=== PATIENT | female | born 1965 | race Caucasian/White ===

== ENCOUNTER 2016-11-13 06:57 | Inpatient (IN) | payer MEDICARE ==
[~2016-11-13] VITALS: Ht 165.1 cm; Wt 57.2 kg
[2016-11-13 11:05] VITALS: BP 108/73
--- NOTE | 2016-11-13 11:05 | NUR ---
[id number]: PT IS 51 YEARS OLD FEMALE ADMITTED ON 5150 FOR DTS. ACCORDING TO THE HOLD, PT REPORTS THAT SHE HAS WORSENING DEPRESSION, FEELS HOPELESS AND DOES NT WANT TO LIVE LIKE THIS ANYMORE. PT HAS SUICIDAL THOUGHTS AND UNABLE TO CONTRACT FOR SAFETY AT THIS TIME. UPON FACE-TO FACE ASSESSMENT, PT IS OBSERVED TO BE ANXIOUS, RESTLESS, PARANOID ABOUT NEW ENVIRONMENT. PT IS WEARING NIGHTGOWN, UNKEMPT, DISHEVELED. NO BEHAVIORAL OUTBURST NOTED AT THIS TIME. NO COMPLAIN OF PAIN OR DISCOMFORT. ESCORTED PT AROUND THE UNIT. PROVIDE PT WITH PT'S RIGHT HANDBOOK. DISCUSS MEAL TIMES AND FRESH AIR BREAKS. MRSA DONE. SKIN ASSESSMENT DONE. NOTIFIED DR. ELIAS AND DR. BREWSTER. BELONGINGS STORED AND DOCUMENTED. ALL PAPERWORK AND COMPUTER DOCUMENTATION DONE. WILL ENDORSE TO INCOMING NURSE TO DOUBLE CHECK ALL PAPERWORK AND COMPUTER DOCUMENTATION. Addendum: 11/13/16 at 1823 by AZAEL ORLANDO RN NOTIFIED DR. RUVALCABA ABOUT NEW ADMISSION
[2016-11-13] MEDS ORDERED: MAGNESIUM HYDROXIDE 30 ML UDC PO PRN (11:30)
[2016-11-13] MEDS ORDERED: ACETAMINOPHEN 325 MG TABLET PO PRN (11:30)
[2016-11-13] MEDS ORDERED: clonazePAM 0.5 MG TABLET PO PRN (11:30)
[2016-11-13] MEDS ORDERED: MAG HYDROX/AL HYDROX/SIMETH 30 ML UDC PO PRN (11:30)
[2016-11-13] MEDS ORDERED: PARO30TA3 PO (12:18)
[2016-11-13] MEDS ORDERED: CLON1TAB4 PO (12:18)
[2016-11-13] MEDS ORDERED: QUET100T PO (12:18)
[2016-11-13] MEDS ORDERED: TOPI200T PO (12:18)
[2016-11-13] MEDS: PAROXETINE HCL 20 MG TABLET PO SCH ×2 (13:37→16:38)
[2016-11-13] MEDS: QUETIAPINE FUMARATE 25 MG TABLET PO SCH ×3 (13:37→21:10)
[2016-11-13 16:00] VITALS: BP 103/72
[2016-11-13 20:00] VITALS: BP 92/64
[2016-11-13] MEDS: TOPIRAMATE 25 MG TABLET PO SCH (21:11)
[2016-11-13] MEDS: clonazePAM 1 MG TABLET PO PRN (22:09)
--- NOTE | 2016-11-13 22:09 | NUR ---
GPS RN: PATIENT HAS JUST BEEN ADMITTED TO THE UNIT 11/12. SKIN IS CLEAR. PATIENT REQUESTED FOR HER KLONOPIN MEDICATION, 1MG GIVEN ORDERED. WILL MONITOR PATIENT AND EFFECTIVENESS OF MEDICATIONS.
[2016-11-14 07:04] LABS: ALBUMIN 3.6 g/dL (3.4-5.0); BILIRUBIN,TOTAL 0.6 mg/dL (0.2-1.0); CALCIUM, SERUM 8.8 mg/dL (8.5-10.1); CREATININE 0.9 mg/dL (0.6-1.3); POTASSIUM 3.8 mmol/L (3.5-5.1); TOTAL PROTEIN, SERUM 5.9 g/dL (6.4-8.2)
[2016-11-14 08:00] VITALS: BP 100/67
[2016-11-14] MEDS: PAROXETINE HCL 20 MG TABLET PO SCH ×2 (08:21→16:19)
[2016-11-14] MEDS: QUETIAPINE FUMARATE 25 MG TABLET PO SCH ×3 (08:21→21:36)
[2016-11-14] MEDS: clonazePAM 1 MG TABLET PO PRN ×2 (11:47→23:33)
[2016-11-14 16:09] VITALS: BP 100/60
[2016-11-14 19:45] VITALS: BP 95/73
[2016-11-14] MEDS: TOPIRAMATE 25 MG TABLET PO SCH (21:36)
[2016-11-15 08:00] VITALS: BP 97/62
[2016-11-15] MEDS: PAROXETINE HCL 20 MG TABLET PO SCH ×2 (08:06→16:22)
[2016-11-15] MEDS: QUETIAPINE FUMARATE 25 MG TABLET PO SCH ×3 (08:06→21:17)
--- NOTE | 2016-11-15 09:40 | NUR ---
Initial Discharge Plan: Patient lives at home with her father [address] [place] [address]. ([phone]). Patient wants to return home upon discharge. Sw attempted to contact patient's father Andres Menendez ([phone]/ ). However he was unavailable. Morgan left a detailed message with her direct contact information. Morgan will attempt again later. Sw will help form a safe and proper discharge.
[2016-11-15 11:13] LABS: BASOPHILS % (AUTO) 0.4 % (0.0-2.0); EOSINOPHILS # (AUTO) 0.1 /CMM (0.0-0.7); EOSINOPHILS % (AUTO) 2.4 % (0.0-6.0); HEMATOCRIT 47 % (33-45); HEMOGLOBIN 15.8 g/dL (11.5-14.8); LYMPHOCYTES # (AUTO) 1.7 /CMM (0.8-4.8); LYMPHOCYTES % (AUTO) 40.5 % (20.0-44.0); MEAN CORPUSCULAR HEMOGLOBIN 33 PG (26.0-33.0); MEAN CORPUSCULAR HGB CONC 34 g/dl (31.0-36.0); MEAN CORPUSCULAR VOLUME 96 fL (82-100); MONOCYTES # (AUTO) 0.4 /CMM (0.1-1.30); MONOCYTES % (AUTO) 9.1 % (2.0-12.0); NEUTROPHILS # (AUTO) 1.9 /CMM (1.8-8.9); NEUTROPHILS % (AUTO) 47.6 % (43.0-81.0); PLATELET COUNT (AUTO) 195 /CMM (150-450); RDW COEFFICIENT OF VARIATION 13.7 (11.5-15.0); RED BLOOD CELL COUNT(AUTO) 4.84 MIL/uL (4.0-5.2); WHITE BLOOD COUNT (AUTO) 4.1 K/uL (4.3-11.0)
[2016-11-15 11:27] LABS: CALCIUM, SERUM 8.8 mg/dL (8.5-10.1); CREATININE 0.9 mg/dL (0.6-1.3); MAGNESIUM 2.1 mg/dL (1.8-2.4); PHOSPHORUS 3.7 mg/dL (2.5-4.9); POTASSIUM 3.3 mmol/L (3.5-5.1)
[2016-11-15] MEDS: clonazePAM 1 MG TABLET PO PRN ×2 (12:06→23:09)
--- NOTE | 2016-11-15 12:06 | NUR ---
[id number]: GAVE KLONOPIN 1 MG PO DUE TO SEVERE ANXIETY UPON PT REQUEST AND WILL CONTINUE TO MONITOR FOR EFFECTIVENESS OF MEDICATION
[2016-11-15 16:00] VITALS: BP 93/63
[2016-11-15 20:21] VITALS: BP 99/69
[2016-11-15] MEDS: TOPIRAMATE 25 MG TABLET PO SCH (21:17)
--- NOTE | 2016-11-15 23:09 | NUR ---
GPS/RN NOTE: PATIENT C/O ANXIETY FEELING, KLONOPIN 1 MG TAB PO GIVEN.
[2016-11-16 08:00] VITALS: BP 102/59
[2016-11-16] MEDS: QUETIAPINE FUMARATE 25 MG TABLET PO SCH ×3 (09:57→21:12)
[2016-11-16] MEDS: PAROXETINE HCL 20 MG TABLET PO SCH ×2 (09:57→16:30)
[2016-11-16] MEDS: clonazePAM 1 MG TABLET PO PRN (09:58)
--- NOTE | 2016-11-16 09:59 | NUR ---
administered klonopin 1 mg po prn for anxiety, per patient request, v/s taken 110/59, p-78, continued monitoring.
--- NOTE | 2016-11-16 10:25 | NUR ---
Sw attempted to contact patient's father Andres Menendez ([phone]/ ). However he was unavailable. Morgan left a detailed message with her direct contact information. Morgan will attempt again later
--- NOTE | 2016-11-16 12:11 | NUR ---
Morgan spoke to patient's father Andres Menendez and his friend Bri ([phone]/ ). Patient's father stated that he was concerned about patient returning home and feels that patient is not ready to be discharged. Patient's father requested to speak to the assigned psychiatrist Dr. Moore. Sw informed Dr. Moore. Patient's father agreed that if there was no other option she can return home and he will pick her up. Sw will follow-up.
--- NOTE | 2016-11-16 13:34 | NUR ---
Sw spoke to patient regarding outpatient mental health programs. Patient stated that she was previously at a program at [facility] specifically fro OCD but was not interested in going back. Sw asked patient if she would be interested in going to [facility] for their intensive outpatient program. Patient stated that if there was not a specific program for OCD than she was not interested in attending. Morgan attempted to contact Mima (fax:[phone]/phone: [phone]) form [facility] outpatient program. However, she was unavailable. Sw left her a message with detailed information and direct contact information. Sw will follow-up. Patient also mentioned that she was interested in volunteering and getting back into the routine of going to the gym and exercising. Sw encouraged patient to look for volunteer opportunities and go to the gym. Patient requested for Sw to print out a list of non-profits so that she may begin looking for volunteer opportunities. Morgan will provide patient with a list of non-profits around her area.
--- NOTE | 2016-11-16 14:29 | NUR ---
Group Notes: S: Patient stated in group- "I do not have any questions at the moment, but would like to speak to you after the group is done." O: Patient presented in group as depressed but appeared to be engaged and listening to the group discussion. A: Patient remains depressed but is beginning to show motivation in pursuing new hobbies such as volunteering and going to the gym. P: Will provide patient with a list of non-profit organizations in the community and encourage patient to continue attending group activities.
[2016-11-16 15:56] VITALS: BP 94/67
--- NOTE | 2016-11-16 16:05 | NUR ---
Sw received a call from Mima (fax:[phone]/phone: [phone]) from [facility]'s outpatient program who stated that they do not have a program specifically for OCD and stated that [facility] has a program specifically for OCD. Sw will follow-up.
[2016-11-16] MEDS ORDERED: POTASSIUM CHLORIDE 20 MEQ TAB.PRT.SR PO SCH (18:30)
[2016-11-16] MEDS ORDERED: POTASSIUM CHLORIDE 20 MEQ TAB.PRT.SR PO ONE (19:00)
--- NOTE | 2016-11-16 19:20 | NUR ---
RN NOTES RECEIVED PATIENT AWAKE IN BED. A/O X3. NO SIGNS OF DISTRESS. BREATHING EVEN AND UNLABORED. PT COOPERATIVE AND CALM. WILL CONTINUE TO MONITOR.
[2016-11-16 20:21] VITALS: BP 98/62
[2016-11-16] MEDS: TOPIRAMATE 25 MG TABLET PO SCH (21:11)
[2016-11-17] MEDS: clonazePAM 1 MG TABLET PO PRN ×3 (00:24→23:01)
--- NOTE | 2016-11-17 00:24 | NUR ---
RN NOTES ADMINISTERED KLONOPIN 1MG PO ORDERED, PER PT REQUEST FOR ANXIETY. VSS. WILL CONTINUE TO MONITOR.
--- NOTE | 2016-11-17 06:53 | NUR ---
RN NOTES PATIENT RESTING IN BED. NO CHANGES IN STATUS. ALL NEEDS ATTENDED TO. WILL ENDORSE TO AM SHIFT FOR MARY.
[2016-11-17 08:00] VITALS: BP 95/65
[2016-11-17] MEDS: PAROXETINE HCL 20 MG TABLET PO SCH ×2 (08:47→16:15)
[2016-11-17] MEDS: QUETIAPINE FUMARATE 25 MG TABLET PO SCH ×3 (08:48→22:01)
--- NOTE | 2016-11-17 13:30 | NUR ---
RN NOTES ADMINISTERED KLONOPIN 1MG PO ORDERED, PER PT REQUEST FOR ANXIETY. VSS. WILL CONTINUE TO MONITOR.
[2016-11-17 16:00] VITALS: BP 94/54
--- NOTE | 2016-11-17 19:50 | NUR ---
RN NOTES COMPLAINED OF CONSTIPATION, MILK OF MAGNESIA 30ML PO GIVEN ORDERED
[2016-11-17 20:00] VITALS: BP 121/63
[2016-11-17] MEDS: TOPIRAMATE 25 MG TABLET PO SCH (22:00)
--- NOTE | 2016-11-17 23:03 | NUR ---
RN NOTES PT IS FEELING ANXIOUS- KLONOPIN 1 MG PO GIVEN ORDERED,V/S STABLE
[2016-11-18 08:00] VITALS: BP 105/60
[2016-11-18] MEDS: clonazePAM 1 MG TABLET PO PRN ×3 (09:24→23:39)
[2016-11-18] MEDS: PAROXETINE HCL 20 MG TABLET PO SCH ×2 (09:24→16:39)
[2016-11-18] MEDS: QUETIAPINE FUMARATE 25 MG TABLET PO SCH ×2 (12:40→16:39)
--- NOTE | 2016-11-18 13:38 | NUR ---
packing floor worker contacted [facility] ([phone]) and spoke to Macrina who requested a psych evaluation and medication list to be faxed ([phone]). Macrina stated that they do not have any female beds available at the moment but might have one on Monday. Morgan will follo-up.
--- NOTE | 2016-11-18 13:41 | NUR ---
Sw spoke to patient regarding [facility] residential treatment program. However, patient stated that she does not want to go to a residential treatment program and stated that she just wants to get back into her regular routine and would like to go back home.
--- NOTE | 2016-11-18 13:41 | NUR ---
highway maintenance crew worker faxed intake packet to Ban from intake (phone:[phone]/ ) for the outpatient program at [facility] [address] [place] [id number] maintenance crew worker will follow-up.
--- NOTE | 2016-11-18 13:44 | NUR ---
Morgan spoke to patient's father Andres Menenedz and his friend Bri ([phone]) who stated that patient should go to a residential treatment program. However, Sw informed patient's father and his friend that patient is refusing a residential treatment and patient is not conserved and cannot be forced to go to a residential treatment program and would like to return home. Morgan informed them that she will follow-up with patient again.
--- NOTE | 2016-11-18 13:48 | NUR ---
Morgan spoke to patient's boyfriend Yair ([phone]) who was unhappy that patient was still in the psychiatric unit and stated that he felt that it was not helping her. Patient's boyfriend Yair requested to speak to the assigned psychiatrist Dr. Moore. Morgan will inform Dr. Moore.
--- NOTE | 2016-11-18 14:43 | NUR ---
GPS/RN PT DR MATSON OK'D TO GIVE CLONAZEPAM NOW . NEW ORDERS RECEIVED AND CARRIED OUT
[2016-11-18 16:00] VITALS: BP 100/59
[2016-11-18 20:00] VITALS: BP 100/62
[2016-11-18] MEDS: TOPIRAMATE 25 MG TABLET PO SCH (21:32)
--- NOTE | 2016-11-19 06:33 | NUR ---
RN GPS NOTES PATIENT RESTING HER BED, NO CHANGES IN STATUS. ALL NEEDS ATTENDED TO. WILL ENDORSE TO NEXT SHIFT FOR CONTINUITY CARE.
[2016-11-19 08:00] VITALS: BP 98/58
[2016-11-19] MEDS: QUETIAPINE FUMARATE 25 MG TABLET PO SCH ×3 (08:09→21:27)
[2016-11-19] MEDS: PAROXETINE HCL 20 MG TABLET PO SCH ×2 (08:10→16:07)
[2016-11-19] MEDS ORDERED: DIPHENOXYLATE HCL/ATROP SULF 1 UDTAB TABLET PO PRN (12:30)
[2016-11-19 15:52] VITALS: BP 105/63
[2016-11-19 20:00] VITALS: BP_SYST 103; BP_SYST 90; BP_DIAS 59; BP_DIAS 61
[2016-11-19] MEDS ORDERED: QUETIAPINE FUMARATE 25 MG TABLET ONE (21:23)
[2016-11-19] MEDS: TOPIRAMATE 25 MG TABLET PO SCH (21:28)
[2016-11-19] MEDS: TEMAZEPAM 7.5 MG CAPSULE PO PRN (23:03)
[2016-11-19 23:26] VITALS: BP 103/61
--- NOTE | 2016-11-20 06:35 | NUR ---
RN GPS NOTES PATIENT RESTING HER BED, COMPLY WITH MEDS, NO ACUTE DISTRESS NOTED. NO CHANGES IN STATUS. ALL NEEDS ATTENDED TO. WILL ENDORSE TO NEXT SHIFT FOR CONTINUITY CARE.
[2016-11-20 08:10] VITALS: BP 108/66
[2016-11-20] MEDS: PAROXETINE HCL 20 MG TABLET PO SCH ×2 (08:31→16:15)
[2016-11-20] MEDS: QUETIAPINE FUMARATE 25 MG TABLET PO SCH ×3 (08:31→21:39)
[2016-11-20] MEDS: clonazePAM 1 MG TABLET PO PRN (10:28)
--- NOTE | 2016-11-20 10:28 | NUR ---
[id number]: GAVE KLONOPIN 1 MG PO DUE TO SEVERE ANXIETY UPON PT REQUEST AND WILL CONTINUE TO MONITOR FOR EFFECTIVENESS OF MEDICATION.
[2016-11-20 20:11] VITALS: BP 94/57
[2016-11-20] MEDS: TOPIRAMATE 25 MG TABLET PO SCH (21:38)
[2016-11-20] MEDS: TEMAZEPAM 7.5 MG CAPSULE PO PRN (21:41)
[2016-11-21] MEDS: clonazePAM 1 MG TABLET PO PRN ×2 (01:48→09:05)
[2016-11-21 08:00] VITALS: BP 109/63
--- NOTE | 2016-11-21 08:00 | NUR ---
GPS/RN AM SHIFT INITIAL NOTES RECEIVED PT AWAKE AND ALERT SITTING IN BED. NO ACUTE DISTRESS NOTED, PT DENIES ANY PAIN. PLEASANT. COMPLAINT OF MEDICATIONS, REQUESTED PRN MEDICATION KLONOPIN. SAFETY MAINTAINED. ON GOING MONITORING.
[2016-11-21] MEDS: PAROXETINE HCL 20 MG TABLET PO SCH (09:06)
[2016-11-21] MEDS: QUETIAPINE FUMARATE 25 MG TABLET PO SCH ×2 (09:48→12:02)
--- NOTE | 2016-11-21 12:41 | NUR ---
Discharge Note: Patient will return home [address] [place] [address]. ([phone]). Patient's father Andres Menendez ([phone]/ ) has been notified and will pick her up via private vehicle. Patient and patient's father were agreeable with the discharge plan. Patient mood and affect were appropriate. Patient denies suicidal and homicidal ideations. Patient will follow-up with Dr. Connors on November 29, 2016 at 1:00pm ([phone]) [address] [place] [address] and will further discuss her substance abuse. Patient will also follow-up with her psychotherapist Dr. Alan Cohn ([phone]) [address] [place] [address], upon discharge. Per patients request, utility maintenance worker gave patient the referral packet for [facility] [address] [place] [address] , [address] [place] [address]. Facilitated info to IDT team who are in agreement with discharge arrangement. The multidisciplinary exitcare form was done, printed, signed, and given to the patient.
--- NOTE | 2016-11-21 12:50 | NUR ---
GPS/RN PRESCRIPTION - FAXED NEW PRESCRIPTION FAXED TO [facility] PER PT'S REQUEST, CONFIRMED MY RECEIVED FAX TRANSMISSION.
--- NOTE | 2016-11-21 13:45 | NUR ---
gps rn radiation 51 YEAR OLD FEMALE DISCHARGED TO HOME IN STABLE CONDITION. COMPLIANT WITH MEDICATIONS, COOPERATIVE WITH TREATMENT PLANS. PATIENT DENIES SI/HI AND INSTRUCTED TO GO TO THE CLOSEST ER IF DEVELOPING SI/HI. BEHAVIOR IMPROVED, PSYCHIATRIC TX PLANS MET, MEDIAL TX PLANS DEFERRED FOR CONTINUAL MONITORING. EDUCATED PATIENT ABOUT AFTER CARE PLAN (EXIT CARE) AND COPY PROVIDED. RETURNED P[facility]AL [facility]. MEDICATIONS RECONCILED WITH MINERVA ESPINAL AND DR VALADEZ AND FAXED TO PATIENT PHARMACY. PATIENT SIGNED DISCHARGE MATERIAL. PATIENT LEFT IN STABLE CONDITION AND NO COMPLICATIONS. ASSISTED TO PRIVATE CAR IN STABLE CONDITION WITH SURINDER NUNEZ AND FATHER [place]
== END 2016-11-21 13:45 | disposition home or self-care (01) | DRG 885 ==
LOC: GPS 10:52
PROVIDERS: ADMIT Psychiatry & Neurology Psychiatry; ATTEND Psychiatry & Neurology Psychiatry
DX: F33.3 Major depressive disorder, recurrent, severe with psychotic symptoms (principal); R45.851 Suicidal ideations; F10.94 Alcohol use, unspecified with alcohol-induced mood disorder; F41.9 Anxiety disorder, unspecified; F42.9 Obsessive-compulsive disorder, unspecified; E87.6 Hypokalemia; K59.00 Constipation, unspecified; Z90.710 Acquired absence of both cervix and uterus; Z91.5 Personal history of self-harm; F19.90 Other psychoactive substance use, unspecified, uncomplicated; Y90.9 Presence of alcohol in blood, level not specified
CPT/HCPCS: 36415; 80048-TC; 80053-TC; 80061-TC; 83735-TC; 84100-TC; 85025-TC; 87081-TC